=== PATIENT | female | born 1995 | race American Indian/Alaskan Native ===

== ENCOUNTER 2020-02-19 13:34 | Observation (INO) | payer BC, MEDICAID ==
--- NOTE | 2020-02-19 16:01 | Event Note ---
ED Screening Note Date of service: 02/19/20 Time: 15:56 ED Screening Note: 24-year-old female who presents the ED with shortness of breath and chest pain x2 days. Was sent here from [place] [facility] due to abnormal EKG Denies sick contact. Denies fever/cough chills or any other medical problems This initial assessment/diagnostic orders/clinical plan/treatment(s) is/are subject to change based on patients health status, clinical progression and re- assessment by fellow clinical providers in the ED. Further treatment and workup at subsequent clinical providers discretion. Patient/guardian urged not to elope from the ED as their condition may be serious if not clinically assessed and managed. Initial orders include: ekg, cxr ordered.
[2020-02-19 16:49] LABS: Basophils # (Auto) 0.1 K/mm3 (0.0-0.1); Basophils % (Auto) 0.6 % (0.0-1.8); Eosinophils % (Auto) 0.5 % (0.0-4.3); Hematocrit 30.1 % (30.3-42.9); Hemoglobin 9.2 gm/dl (10.1-14.3); Lymphocytes % (Auto) 20.7 % (13.4-35.0); Mean Corpuscular HGB Conc 31 % (30-34); Monocytes % (Auto) 10.4 % (0.0-7.3); Platelet Count 318 K/mm3 (140-440); Red Blood Count 4.88 M/mm3 (3.65-5.03)
[2020-02-19 16:56] LABS: Mean Corpuscular Volume 62 fl (79-97)
--- NOTE | 2020-02-19 16:58 | XRay Report ---
CHEST 2 VIEWS INDICATION / CLINICAL INFORMATION: C/0 CHEST PAIN WITH SOB X 3-4 DAYS. COMPARISON: None available. FINDINGS: SUPPORT DEVICES: Port-A-Cath is noted on the right. Tip of the catheter is oriented medially suggesti ng the tip may be in the azygos vein. HEART / MEDIASTINUM: No significant abnormality. LUNGS / PLEURA: No significant pulmonary or pleural abnormality. .No pneumothorax. ADDITIONAL FINDINGS: Scoliotic curvature is noted in the thoracolumbar spine IMPRESSION: 1. No acute pulmonary findings. Signer Name: Bay Styles MD Signed: 02/19/2020 4:54 PM Workstation Name: [id number]
[2020-02-19 17:16] LABS: BUN/Creatinine Ratio 15; Blood Urea Nitrogen 12 mg/dL (7-17); Calcium 10.1 mg/dL (8.4-10.2); Hemolysis Index 1
[2020-02-19] MEDS ORDERED: KETOROLAC 60 MG/2 ML INJ IM ONE (17:22)
--- NOTE | 2020-02-19 17:27 | Emergency Department Report ---
ED General Adult HPI - General Chief complaint: Chest Pain Stated complaint: CHEST PAIN/SOB/COUGH Time Seen by Provider: 02/19/20 17:15 Source: patient Mode of arrival: Ambulatory Limitations: No Limitations - History of Present Illness Initial comments: Patient is 24 years old female with history of autoimmune deficiency. Patient presented to the ER complaining of chest pain, sharp with no radiation associated with shortness of breath. Patient is also complaining of generalized body pain mainly to the back and lower extremities. Patient initially went to an urgent care and sent here for evaluation because of abnormal EKG. EKG reviewed and showed sinus tachycardia no other abnormalities detected. Patient denied any fever or chills. Patient stated that she has been having some cough but mainly when she woke up in the morning. Patient denied any nausea or vomiting. -: days(s) (2) - Related Data Previous Rx's Medication Instructions Recorded Last Taken Type Amoxicillin/K Clav Tab [Augmentin 1 tab PO BID #20 tablet 06/23/14 Unknown Rx 875MG] Ibuprofen [Motrin] 600 mg PO Q8H PRN #14 tablet 06/23/14 Unknown Rx traMADoL [Ultram] 50 mg PO Q6HR PRN #14 tablet 06/23/14 Unknown Rx Allergies Allergy/AdvReac Type Severity Reaction Status Date / Time midazolam HCl [From Versed] Allergy Unknown Verified 02/19/20 14:44 shellfish derived Allergy Unknown Verified 02/19/20 14:44 ED Review of Systems ROS: Stated complaint: CHEST PAIN/SOB/COUGH Other details as noted in HPI Comment: All other systems reviewed and negative Constitutional: denies: chills, fever Respiratory: cough, shortness of breath. denies: SOB with exertion, SOB at rest, wheezing Cardiovascular: chest pain, palpitations. denies: dyspnea on exertion, orthopnea Gastrointestinal: denies: abdominal pain, nausea, vomiting, diarrhea, constipation, hematemesis, melena, hematochezia Musculoskeletal: denies: back pain Neurological: denies: headache, weakness, numbness, paresthesias, confusion, abnormal gait ED Past Medical Hx - Past Medical History Hx Seizures: Yes Hx Asthma: Yes Additional medical history: BORN WITH IMMUNE DEFICIENCY, SPINA BIFIDA - Surgical History Additional Surgical History: SINUS SURGERY, HAS ON RIGHT SIDE OF CHEST, TNA, GLAND REMOVED ON R SIDE OF JAW, - Social History Smoking Status: Never Smoker Substance Use Type: None - Medications Home Medications: Home Medications Medication Instructions Recorded Confirmed Last Taken Type Amoxicillin/K Clav Tab [Augmentin 1 tab PO BID #20 tablet 06/23/14 Unknown Rx 875MG] Ibuprofen [Motrin] 600 mg PO Q8H PRN #14 tablet 06/23/14 Unknown Rx traMADoL [Ultram] 50 mg PO Q6HR PRN #14 tablet 06/23/14 Unknown Rx ED Physical Exam - General Limitations: No Limitations General appearance: alert, in no apparent distress, anxious - Head Head exam: Present: atraumatic, normocephalic, normal inspection - Eye Eye exam: Present: normal appearance - ENT ENT exam: Present: normal exam, normal orophraynx, mucous membranes moist - Neck Neck exam: Present: normal inspection, full ROM. Absent: tenderness, meningismus, lymphadenopathy, thyromegaly - Respiratory Respiratory exam: Present: normal lung sounds bilaterally - Cardiovascular Cardiovascular Exam: Present: regular rate, normal rhythm, normal heart sounds - GI/Abdominal GI/Abdominal exam: Present: soft, normal bowel sounds. Absent: distended, tenderness, guarding, rebound, rigid, organomegaly, mass, bruit, pulsatile mass, hernia - Extremities Exam Extremities exam: Present: normal inspection, full ROM, normal capillary refill. Absent: pedal edema, calf tenderness - Back Exam Back exam: Present: normal inspection, full ROM. Absent: CVA tenderness (R), CVA tenderness (L) - Neurological Exam Neurological exam: Present: alert, oriented X3, CN II-XII intact, normal gait, reflexes normal. Absent: motor sensory deficit - Psychiatric Psychiatric exam: Present: normal mood - Skin Skin exam: Present: warm, intact, normal color ED Course Vital Signs 02/19/20 14:45 Temperature 98.7 F Pulse Rate 108 H Respiratory 16 Rate Blood Pressure 115/72 O2 Sat by Pulse 99 Oximetry ED Medical Decision Making - Lab Data Result diagrams: 02/19/20 16:33 02/19/20 16:33 - EKG Data -: EKG Interpreted by Mt EKG shows normal: sinus rhythm Rate: tachycardia - EKG Data Interpretation: no acute changes - Radiology Data Radiology results: report reviewed - Medical Decision Making Patient is 24 years old female with history of autoimmune deficiency. Patient presented to the ER complaining of chest pain, sharp with no radiation associated with shortness of breath. Patient is also complaining of generalized body pain mainly to the back and lower extremities. Patient initially went to an urgent care and sent here for evaluation because of abnormal EKG. EKG reviewed and showed sinus tachycardia no other abnormalities detected. Patient denied any fever or chills. Patient stated that she has been having some cough but mainly when she woke up in the morning. Patient denied any nausea or vomiting. Patient remained stable in the ER. Labs reviewed and showed elevated d-dimer. CTA chest showed segmental and subsegmental right upper lobe pulmonary emboli. Patient started on heparin drip and I discussed the patient with , he agreed to admit the patient to medical service for further management. Critical Care Time: Yes Critical care time in (mins) excluding proc time.: 30 Critical care attestation.: If time is entered above; I have spent that time in minutes in the direct care of this critically ill patient, excluding procedure time. ED Disposition Clinical Impression: Pulmonary embolism, Chest pain Disposition: 09 OP ADMIT IP TO THIS HOSP Is pt being admited?: Yes Condition: Stable Instructions: Chest Pain (ED) Referrals: PRIMARY CARE, [Primary Care Provider] - 3-5 Days
[2020-02-19 18:48] LABS: Bilirubin,Urine NEG (Negative); Blood,Urine NEG (Negative); Color,Urine Yellow (Yellow); Mucus,Urine 3+ /HPF
[2020-02-19 19:39] LABS: INR 1.08 (0.87-1.13); Partial Thromboplastin Time 29.9 Sec. (24.2-36.6)
[2020-02-19] MEDS ORDERED: SODIUM CHLORIDE 0.9% 1000 ML 1,000 ML IV ONE (19:59)
--- NOTE | 2020-02-19 20:03 | Cat Scan Report ---
CTA CHEST WITH CONTRAST INDICATION / CLINICAL INFORMATION: CHEST PAIN WITH d-dimer >75530. TECHNIQUE: Axial CT images were obtained through the chest after injection of IV contrast. 3 plane MIP and/or 3D reconstructions were produced. All CT scans at this location are performed using CT dose reduction f or ALARA by means of automated exposure control. COMPARISON: None available. FINDINGS: PULMONARY ARTERIES: Filling defect seen in the segmental and subsegmental arteries involving the righ t upper lobe. THORACIC AORTA: Four-vessel arch noted. HEART: No significant abnormality. CORONARY ARTERIES: No significant calcification. MEDIASTINUM / SHEA: Soft tissue density superior mediastinal mass measuring 5.1 x 5.2 x 6.4 cm (HU 24 ) noted encasing the distal trachea, yue, and bronchial bifurcation without invasion. Additionally there is displacement of great vessels. Mediastinal lymphadenopathy is also noted, the largest congl omerate just left of the aortic arch measures 1.9 x 1.3 cm. PLEURA: No pleural effusion. No pneumothorax. LUNGS: Left lung base atelectasis noted ADDITIONAL FINDINGS: Right chest wall Port-A-Cath with its tip noted at the superior vena cava. UPPER ABDOMEN: No acute findings. SKELETAL STRUCTURES: No significant osseous abnormality. IMPRESSION: 1. Segmental and subsegmental right upper lobe pulmonary embolism. 2. Superior mediastinal soft tissue density mass described in detail above. ER physician reports a hi story of autoimmune disease. This may represent a thymoma. Further correlation with patient's medical history is recommended. 3. Left lower lobe atelectasis. CRITICAL RESULT: Time of Discovery (ROVING INSPECTOR/CDT): 1849 Time of Communication (ROVING INSPECTOR/CDT): 1856 Licensed Practitioner Receiving Report: Dr. Magdalene ABDUL ([facility]) Read-Back Performed: Yes. Signer Name: Yobani Valero MD Signed: 02/19/2020 7:58 PM Workstation Name: [id number]
[2020-02-19] MEDS ORDERED: HEPARIN 10,000 UNITS/10 ML VIAL IV ONE (20:04)
[2020-02-19] MEDS ORDERED: HEPARIN 1,000 UNIT/1 ML VIAL IV ONE (20:05)
[2020-02-19] MEDS ORDERED: HEPARIN/ 0.45% NACL DRIP 25,000 UNIT/500 ML BAG IV SCH (21:00)
[2020-02-19] MEDS ORDERED: MORPHINE 2 MG/1 ML INJ IV PRN (22:04)
[2020-02-19] MEDS ORDERED: ONDANSETRON 4 MG/2 ML INJ IV PRN (22:04)
[2020-02-19] MEDS ORDERED: ACETAMINOPHEN 325 MG TAB PO PRN (22:04)
--- NOTE | 2020-02-19 22:12 | History and Physical Report ---
History of Present Illness Date of examination: 02/19/20 Date of admission: 02/19/20 21:35 Chief complaint: Chest Pain Shortness of Breath History of present illness: 24-year-old -[place] female with known history of autoimmune deficiency, history of seizure disorder and asthma presenting to the emergency room today complaining of chest pain with associated shortness of breath. Chest pain is said to be right-sided and radiating towards the back and lower extremities. He was seen at an urgent care facility and subsequently sent to the emergency room for further evaluation. Upon arrival in the emergency room she was found to be tachycardic. She denies any fever or chills, no nausea vomiting, no headache or dizziness. She has had some mild cough which is nonproductive. Work-up in the emergency room shows elevated d-dimer. CT angiogram shows right- sided pulmonary embolism She was subsequently commenced on heparin drip. Past History Past Medical History: seizures, other (Asthma,Auto immune disorder, H/O Spina Bifida) Past Surgical History: Other (Tonsillectomy and adenoidectomy, Rt. sided Chest Port placement,Sinus surgery) Social history: alcohol abuse (Occasional alcohol) Family history: hypertension (Mother has h/o hypertension), other (H/O Blood clot in father) Medications and Allergies Allergies Allergy/AdvReac Type Severity Reaction Status Date / Time midazolam HCl [From Versed] Allergy Unknown Verified 02/19/20 14:44 shellfish derived Allergy Unknown Verified 02/19/20 14:44 Home Medications Medication Instructions Recorded Confirmed Last Taken Type Amoxicillin/K Clav Tab [Augmentin 1 tab PO BID #20 tablet 06/23/14 Unknown Rx 875MG] Ibuprofen [Motrin] 600 mg PO Q8H PRN #14 tablet 06/23/14 Unknown Rx traMADoL [Ultram] 50 mg PO Q6HR PRN #14 tablet 06/23/14 Unknown Rx Active Meds: Active Medications Acetaminophen (Tylenol) 650 mg PO Q4H PRN PRN Reason: Pain MILD(1-3)/Fever >100.5/SANTOYO Heparin Sodium/Sodium Chloride (Heparin/ 0.45% Nacl-25,000 Unit/500 Ml) 25,000 unit in 500 mls @ 21 mls/hr IV TITR KELLY; Protocol Last Admin: 02/19/20 21:23 Dose: 1,050 units/hr, 21 mls/hr Documented by: Morphine Sulfate (Morphine) 2 mg IV Q4H PRN PRN Reason: Pain, Moderate (4-6) Ondansetron HCl (Zofran) 4 mg IV Q8H PRN PRN Reason: Nausea And Vomiting Sodium Chloride (Sodium Chloride Flush Syringe 10 Ml) 10 ml IV BID KELLY Sodium Chloride (Sodium Chloride Flush Syringe 10 Ml) 10 ml IV PRN PRN PRN Reason: LINE FLUSH Review of Systems Constitutional: no fever, no chills, no fatigue Ears, nose, mouth and throat: no nasal congestion, no sore throat Cardiovascular: chest pain, palpitations Respiratory: cough (mild), shortness of breath Gastrointestinal: no abdominal pain, no nausea, no vomiting, no diarrhea Genitourinary Female: no pelvic pain, no flank pain, no dysuria, no hematuria Musculoskeletal: no neck pain, no low back pain Integumentary: no rash, no pruritis Neurological: no headaches, no confusion Psychiatric: no anxiety, no depression Exam - Constitutional Vitals: Temp Pulse Resp BP Pulse Ox 98.7 F 108 H 16 115/72 99 02/19/20 14:45 02/19/20 14:45 02/19/20 14:45 02/19/20 14:45 02/19/20 14:45 General appearance: Present: no acute distress, well-nourished - EENT Eyes: Present: PERRL, EOM intact. Absent: scleral icterus ENT: hearing intact, clear oral mucosa, dentition normal - Neck Neck: Present: supple, normal ROM - Respiratory Respiratory effort: normal Respiratory: bilateral: CTA - Cardiovascular Rhythm: regular Heart Sounds: Present: S1 & S2. Absent: gallop, systolic murmur, diastolic murmur, rub - Extremities Extremities: no ischemia, pulses intact, pulses symmetrical, No edema, Full ROM Peripheral Pulses: within normal limits - Abdominal General gastrointestinal: Present: soft, non-tender, non-distended, normal bowel sounds. Absent: mass - Integumentary Integumentary: Present: clear, warm, dry. Absent: rash - Musculoskeletal Musculoskeletal: strength equal bilaterally - Psychiatric Psychiatric: appropriate mood/affect, intact judgment & insight, memory intact, cooperative - Neurologic Neurologic: CNII-XII intact, no focal deficits, moves all extremities Results - Labs CBC & Chem 7: 02/19/20 16:33 02/19/20 16:33 Labs: Abnormal lab results 02/19/20 02/19/20 02/19/20 Range/Units 16:33 16:33 17:49 Hgb 9.2 L (10.1-14.3) gm/dl Hct 30.1 L (30.3-42.9) % MCV 62 L (79-97) fl MCH 19 L (28-32) pg RDW 20.0 H (13.2-15.2) % [place] % (Auto) 10.4 H (0.0-7.3) % [place] # 1.0 H (0.0-0.8) K/mm3 D-Dimer 556.81 H (0-234) ng/mlDDU Carbon Dioxide 21 L (22-30) mmol/L Assessment and Plan - Patient Problems (1) Pulmonary embolism Current Visit: Yes Status: Acute Plan to address problem: Patient placed on heparin drip. Will monitor PT/INR. (2) Chest pain Current Visit: Yes Status: Acute Plan to address problem: Possibly secondary to the pulmonary embolism. Will place on analgesic medication. (3) Full code status Current Visit: Yes Status: Acute
[2020-02-20 06:10] LABS: INR 1.03 (0.87-1.13)
[2020-02-20 06:19] LABS: Blood Urea Nitrogen 12 mg/dL (7-17); Calcium 8.9 mg/dL (8.4-10.2); Hemolysis Index 4
[2020-02-20 06:21] LABS: BUN/Creatinine Ratio 17
--- NOTE | 2020-02-20 10:43 | Consultation ---
History of Present Illness - History of Present Illness PRELIM CONSULT NOTE--NOT SEEN YET 24yo AA woman with mention of autoimmune disease (details unavailable) and spina bifida, seizures, asthma now eval for back pain, CO, SOB, tachypnea found to have evidence of PE started IV heparin chart reviewed IMPRESSION presumed clotting tendency, now with PE mention of autoimmune disease-r/o lupus anticoagulant microcytic anemia; r/o iron defic clotting tendency in AA could be due to sickle trait or sickle cell variant ddimer is not hihgh enough to matter--this shows small clot burden RECOMMEND change to lovenox because safer and more effective anticipate home xarelto after she improves-start working on this steroid pulse for presumed pulm infarction (pain) opiate meds may be needed for pain labs to include RUPALI, DNA Ab, cardiolipin Ab, hgb electroporesis, Fe, TIBC, ferr contact ms [phone] for heme questions Abnormal Lab Results 02/19/20 02/19/20 02/19/20 16:33 16:33 17:49 WBC 9.6 RBC 4.88 Hgb 9.2 L Hct 30.1 L MCV 62 L MCH 19 L MCHC 31 RDW 20.0 H Plt Count 318 Lymph % (Auto) 20.7 [place] % (Auto) 10.4 H Eos % (Auto) 0.5 Baso % (Auto) 0.6 Lymph # 2.0 [place] # 1.0 H Eos # 0.0 Baso # 0.1 Seg Neutrophils % 67.8 Seg Neutrophils # 6.5 PT INR APTT D-Dimer 556.81 H Sodium 138 Potassium 4.7 Chloride 99.2 Carbon Dioxide 21 L Anion Gap 23 BUN 12 Creatinine 0.8 Estimated GFR > 60 BUN/Creatinine Ratio 15 Glucose 79 Calcium 10.1 Urine Color Urine Turbidity Urine pH Ur Specific [place] Urine Protein Urine Glucose (UA) Urine Ketones Urine Blood Urine Nitrite Urine Bilirubin Urine Urobilinogen Ur Leukocyte Esterase Urine WBC (Auto) Urine RBC (Auto) U Epithel Cells (Auto) Urine Mucus 02/19/20 02/19/20 02/20/20 18:03 18:52 04:15 WBC RBC Hgb Hct MCV MCH MCHC RDW Plt Count Lymph % (Auto) [place] % (Auto) Eos % (Auto) Baso % (Auto) Lymph # [place] # Eos # Baso # Seg Neutrophils % Seg Neutrophils # PT 14.1 13.7 INR 1.08 1.03 APTT 29.9 D-Dimer Sodium Potassium Chloride Carbon Dioxide Anion Gap BUN Creatinine Estimated GFR BUN/Creatinine Ratio Glucose Calcium Urine Color Yellow Urine Turbidity Clear Urine pH 5.0 Ur Specific [place] 1.029 Urine Protein 30 mg/dl Urine Glucose (UA) Neg Urine Ketones 80 Urine Blood Neg Urine Nitrite Neg Urine Bilirubin Neg Urine Urobilinogen 4.0 Ur Leukocyte Esterase Sm Urine WBC (Auto) 5.0 Urine RBC (Auto) 3.0 U Epithel Cells (Auto) 6.0 Urine Mucus 3+ 02/20/20 04:15 WBC RBC Hgb Hct MCV MCH MCHC RDW Plt Count Lymph % (Auto) [place] % (Auto) Eos % (Auto) Baso % (Auto) Lymph # [place] # Eos # Baso # Seg Neutrophils % Seg Neutrophils # PT INR APTT D-Dimer Sodium 138 Potassium 4.4 Chloride 103.7 Carbon Dioxide 22 Anion Gap 17 BUN 12 Creatinine 0.7 Estimated GFR > 60 BUN/Creatinine Ratio 17 Glucose 87 Calcium 8.9 Urine Color Urine Turbidity Urine pH Ur Specific [place] Urine Protein Urine Glucose (UA) Urine Ketones Urine Blood Urine Nitrite Urine Bilirubin Urine Urobilinogen Ur Leukocyte Esterase Urine WBC (Auto) Urine RBC (Auto) U Epithel Cells (Auto) Urine Mucus Active Medications Acetaminophen (Tylenol) 650 mg PO Q4H PRN PRN Reason: Pain MILD(1-3)/Fever >100.5/SANTOYO Heparin Sodium/Sodium Chloride (Heparin/ 0.45% Nacl-25,000 Unit/500 Ml) 25,000 unit in 500 mls @ 21 mls/hr IV TITR [facility]; Protocol Last Admin: 02/19/20 21:23 Dose: 1,050 units/hr, 21 mls/hr Documented by: Morphine Sulfate (Morphine) 2 mg IV Q4H PRN PRN Reason: Pain, Moderate (4-6) Ondansetron HCl (Zofran) 4 mg IV Q8H PRN PRN Reason: Nausea And Vomiting Sodium Chloride (Sodium Chloride Flush Syringe 10 Ml) 10 ml IV BID KELLY Sodium Chloride (Sodium Chloride Flush Syringe 10 Ml) 10 ml IV PRN PRN PRN Reason: LINE FLUSH Vital Signs - 24 hr 02/19/20 02/19/20 02/19/20 14:45 22:24 22:31 Temperature 98.7 F 98.8 F Pulse Rate 108 H 91 H 88 Respiratory 16 16 17 Rate Blood Pressure 115/72 Blood Pressure 106/58 [Left] O2 Sat by Pulse 99 100 Oximetry 02/19/20 02/20/20 02/20/20 23:49 03:20 06:24 Temperature 99.5 F 98.5 F Pulse Rate 98 H 92 H 91 H Respiratory 16 18 Rate Blood Pressure 95/52 99/55 Blood Pressure [Left] O2 Sat by Pulse 99 100 Oximetry 02/20/20 02/20/20 07:24 07:25 Temperature Pulse Rate 98 H 100 H Respiratory Rate Blood Pressure 107/59 Blood Pressure [Left] O2 Sat by Pulse 97 97 Oximetry Past History Past Medical History: seizures, other (Asthma,Auto immune disorder, H/O Spina Bifida) Past Surgical History: Other (Tonsillectomy and adenoidectomy, Rt. sided Chest Port placement,Sinus surgery) Social history: alcohol abuse (Occasional alcohol) Family history: hypertension (Mother has h/o hypertension), other (H/O Blood clot in father) Medications and Allergies Allergies Allergy/AdvReac Type Severity Reaction Status Date / Time midazolam HCl [From Versed] Allergy Unknown Verified 02/19/20 14:44 shellfish derived Allergy Unknown Verified 02/19/20 14:44 Home Medications Medication Instructions Recorded Confirmed Last Taken Type cefUROXime [Ceftin] 500 mg PO BID 02/20/20 02/20/20 Unknown History Active Meds: Active Medications Acetaminophen (Tylenol) 650 mg PO Q4H PRN PRN Reason: Pain MILD(1-3)/Fever >100.5/SANTOYO Heparin Sodium/Sodium Chloride (Heparin/ 0.45% Nacl-25,000 Unit/500 Ml) 25,000 unit in 500 mls @ 21 mls/hr IV TITR KELLY; Protocol Last Admin: 02/19/20 21:23 Dose: 1,050 units/hr, 21 mls/hr Documented by: Morphine Sulfate (Morphine) 2 mg IV Q4H PRN PRN Reason: Pain, Moderate (4-6) Ondansetron HCl (Zofran) 4 mg IV Q8H PRN PRN Reason: Nausea And Vomiting Sodium Chloride (Sodium Chloride Flush Syringe 10 Ml) 10 ml IV BID KELLY Sodium Chloride (Sodium Chloride Flush Syringe 10 Ml) 10 ml IV PRN PRN PRN Reason: LINE FLUSH Exam - Constitutional Vitals: Temp Pulse Resp BP Pulse Ox 98.5 F 100 H 18 107/59 97 02/20/20 03:20 02/20/20 07:25 02/20/20 03:20 02/20/20 07:24 02/20/20 07:25 Results - Labs CBC & Chem 7: 02/19/20 16:33 02/20/20 04:15 Labs: Abnormal lab results 02/19/20 02/19/20 02/19/20 Range/Units 16:33 16:33 17:49 Hgb 9.2 L (10.1-14.3) gm/dl Hct 30.1 L (30.3-42.9) % MCV 62 L (79-97) fl MCH 19 L (28-32) pg RDW 20.0 H (13.2-15.2) % [place] % (Auto) 10.4 H (0.0-7.3) % [place] # 1.0 H (0.0-0.8) K/mm3 D-Dimer 556.81 H (0-234) ng/mlDDU Carbon Dioxide 21 L (22-30) mmol/L
[2020-02-20] MEDS: ENOXAPARIN 80 MG/0.8 ML INJ SUB-Q SCH ×2 (11:49→22:28)
[2020-02-20] MEDS: methylPREDNISolone Sod Succinate 125 MG/2 ML INJ IV SCH ×2 (11:49→22:27)
--- NOTE | 2020-02-20 15:28 | Vascular Lab Report ---
DUPLEX DOPPLER LOWER EXTREMITY VEINS, BILATERAL INDICATION / CLINICAL INFORMATION: Rt PE, evaluate for DVT. TECHNIQUE: Duplex doppler imaging was performed through the veins of both lower extremities using venous medardo mary and other maneuvers. COMPARISON: None available. FINDINGS: RIGHT COMMON FEMORAL VEIN: Negative. RIGHT FEMORAL VEIN: Negative. RIGHT POPLITEAL VEIN: Negative. RIGHT CALF VEINS: Negative. LEFT COMMON FEMORAL VEIN: Negative. LEFT FEMORAL VEIN: Negative. LEFT POPLITEAL VEIN: Negative. LEFT CALF VEINS: Negative. ADDITIONAL FINDINGS: None. IMPRESSION: No sonographic evidence for DVT in either lower extremity. Signer Name: Polo Sotelo MD Signed: 02/20/2020 3:23 PM Workstation Name: [id number]
--- NOTE | 2020-02-20 19:27 | Progress Note ---
Assessment and Plan Assessment and plan: --Pulmonary embolism Current Visit: Yes Status: Acute Plan to address problem: Patient placed on heparin drip. Will monitor PT/INR. Will change to Lovenox subcu every 12 Oxygen titrate O2 sats to more than 90% Pain medications supportive care Hyper coag panel requested, Hematology consult DC on oral anticoagulants, Xarelto versus Eliquis --Lower extremity venous Doppler; negative for DVT --Severe atypical chest pain/due to PE/?pulmonary infarction Current Visit: Yes Status: Acute Plan to address problem: Consider opioid pain medications, IV Dilaudid And oral Percocet as needed --History of autoimmune disease: [Details unknown] Current Visit: Yes Status: Acute Plan to address problem: try to get information from her MD Or patient may follow-up upon discharge for further evaluation and management --Anemia: Probably iron deficiency Current Visit: Yes Status: Acute Plan to address problem: Iron panel, ferrous sulfate as needed --Full code status Current Visit: Yes Status: Acute We will closely monitor patient and adjust management as needed. Plan of care reviewed with the patient and her nurse Hematology evaluation recommendations noted and appreciated History Interval history: I have seen and examined the patient today morning at bedside Patient's chart and medications reviewed Admitted with acute PE, on heparin drip Patient denies shortness of breath or chest pain Vital signs noted Hospitalist Physical - Constitutional Vitals: Temp Pulse Resp BP Pulse Ox 99.6 F 100 H 18 92/50 99 02/20/20 12:00 02/20/20 13:50 02/20/20 12:00 02/20/20 12:00 02/20/20 12:06 General appearance: Present: no acute distress, well-nourished - EENT Eyes: Present: PERRL, EOM intact - Neck Neck: Present: supple, normal ROM - Respiratory Respiratory effort: normal Respiratory: bilateral: diminished, rhonchi, negative: rales, wheezing - Cardiovascular Rhythm: regular Heart Sounds: Present: S1 & S2 - Extremities Extremities: no ischemia, No edema - Abdominal General gastrointestinal: soft, non-tender, non-distended, normal bowel sounds - Integumentary Integumentary: Present: clear, warm - Psychiatric Psychiatric: appropriate mood/affect, cooperative - Neurologic Neurologic: moves all extremities Results - Labs CBC & Chem 7: 02/19/20 16:33 02/20/20 04:15 Labs: Laboratory Last Values WBC 9.6 K/mm3 (4.5-11.0) 02/19/20 16:33 RBC 4.88 M/mm3 (3.65-5.03) 02/19/20 16:33 Hgb 9.2 gm/dl (10.1-14.3) L 02/19/20 16:33 Hct 30.1 % (30.3-42.9) L 02/19/20 16:33 MCV 62 fl (79-97) L 02/19/20 16:33 MCH 19 pg (28-32) L 02/19/20 16:33 MCHC 31 % (30-34) 02/19/20 16:33 RDW 20.0 % (13.2-15.2) H 02/19/20 16:33 Plt Count 318 K/mm3 (140-440) 02/19/20 16:33 Lymph % (Auto) 20.7 % (13.4-35.0) 02/19/20 16:33 Schley % (Auto) 10.4 % (0.0-7.3) H 02/19/20 16:33 Eos % (Auto) 0.5 % (0.0-4.3) 02/19/20 16:33 Baso % (Auto) 0.6 % (0.0-1.8) 02/19/20 16:33 Lymph # 2.0 K/mm3 (1.2-5.4) 02/19/20 16:33 Schley # 1.0 K/mm3 (0.0-0.8) H 02/19/20 16:33 Eos # 0.0 K/mm3 (0.0-0.4) 02/19/20 16:33 Baso # 0.1 K/mm3 (0.0-0.1) 02/19/20 16:33 Seg Neutrophils % 67.8 % (40.0-70.0) 02/19/20 16:33 Seg Neutrophils # 6.5 K/mm3 (1.8-7.7) 02/19/20 16:33 PT 13.7 Sec. (12.2-14.9) 02/20/20 04:15 INR 1.03 (0.87-1.13) 02/20/20 04:15 APTT 29.9 Sec. (24.2-36.6) 02/19/20 18:52 D-Dimer 556.81 ng/mlDDU (0-234) H 02/19/20 17:49 Heparin Anti-Xa Level 0.78 U.I./ml (0.3-0.7) H 02/20/20 13:46 Sodium 138 mmol/L (137-145) 02/20/20 04:15 Potassium 4.4 mmol/L (3.6-5.0) 02/20/20 04:15 Chloride 103.7 mmol/L (98-107) 02/20/20 04:15 Carbon Dioxide 22 mmol/L (22-30) 02/20/20 04:15 Anion Gap 17 mmol/L 02/20/20 04:15 BUN 12 mg/dL (7-17) 02/20/20 04:15 Creatinine 0.7 mg/dL (0.6-1.2) 02/20/20 04:15 Estimated GFR > 60 ml/min 02/20/20 04:15 BUN/Creatinine Ratio 17 % 02/20/20 04:15 Glucose 87 mg/dL (65-100) 02/20/20 04:15 Calcium 8.9 mg/dL (8.4-10.2) 02/20/20 04:15 Urine Color Yellow (Yellow) 02/19/20 18:03 Urine Turbidity Clear (Clear) 02/19/20 18:03 Urine pH 5.0 (5.0-7.0) 02/19/20 18:03 Ur Specific [place] 1.029 (1.003-1.030) 02/19/20 18:03 Urine Protein 30 mg/dl mg/dL (Negative) 02/19/20 18:03 Urine Glucose (UA) Neg mg/dL (Negative) 02/19/20 18:03 Urine Ketones 80 mg/dL (Negative) 02/19/20 18:03 Urine Blood Neg (Negative) 02/19/20 18:03 Urine Nitrite Neg (Negative) 02/19/20 18:03 Urine Bilirubin Neg (Negative) 02/19/20 18:03 Urine Urobilinogen 4.0 mg/dL (<2.0) 02/19/20 18:03 Ur Leukocyte Esterase Sm (Negative) 02/19/20 18:03 Urine WBC (Auto) 5.0 /HPF (0.0-6.0) 02/19/20 18:03 Urine RBC (Auto) 3.0 /HPF (0.0-6.0) 02/19/20 18:03 U Epithel Cells (Auto) 6.0 /HPF (0-13.0) 02/19/20 18:03 Urine Mucus 3+ /HPF 02/19/20 18:03 Farrar/IV: Voiding Method Toilet IV Catheter Type [Right INT / Saline Lock Antecubital] Active Medications - Current Medications Current Medications: Generic Name Dose Route Start Last Admin Trade Name Freq PRN Reason Stop Dose Admin Acetaminophen 650 mg 02/19/20 22:04 Tylenol PO Q4H PRN Pain MILD(1-3)/Fever >100.5/SANTOYO Enoxaparin Sodium 80 mg 02/20/20 11:00 02/20/20 11:49 Enoxaparin SUB-Q 80 mg Q12HR KELLY Administration Methylprednisolone Sodium Succinate 80 mg 02/20/20 11:00 02/20/20 11:49 Solu-Medrol IV 02/20/20 23:01 80 mg Q12H KELLY Administration Morphine Sulfate 2 mg 02/19/20 22:04 Morphine IV Q4H PRN Pain, Moderate (4-6) Ondansetron HCl 4 mg 02/19/20 22:04 Zofran IV Q8H PRN Nausea And Vomiting Sodium Chloride 10 ml 02/20/20 10:00 Sodium Chloride Flush Syringe 10 Ml IV BID KELLY Sodium Chloride 10 ml 02/19/20 22:04 Sodium Chloride Flush Syringe 10 Ml IV PRN PRN LINE FLUSH
[2020-02-20] MEDS ORDERED: HYDROmorphone 1 MG/1 ML INJ IM PRN (19:32)
[2020-02-21 04:52] LABS: Basophils % (Auto) 0.1 % (0.0-1.8); Hematocrit 27.1 % (30.3-42.9); Hemoglobin 8.2 gm/dl (10.1-14.3); Lymphocytes # (Auto) 1.1 K/mm3 (1.2-5.4); Lymphocytes % (Auto) 13.1 % (13.4-35.0); Mean Corpuscular HGB Conc 30 % (30-34); Monocytes # (Auto) 0.4 K/mm3 (0.0-0.8); Monocytes % (Auto) 4.2 % (0.0-7.3); Platelet Count 328 K/mm3 (140-440); Red Blood Count 4.44 M/mm3 (3.65-5.03); Red Cell Distribution Width 19.6 % (13.2-15.2)
[2020-02-21 04:55] LABS: Mean Corpuscular Volume 61 fl (79-97)
[2020-02-21 05:06] LABS: Iron 16 ug/dL (37-170); Total Iron Binding Capacity 350 mcg/dL (250-450)
[2020-02-21] MEDS: ENOXAPARIN 80 MG/0.8 ML INJ SUB-Q SCH (09:29)
--- NOTE | 2020-02-21 12:05 | Progress Note ---
Subjective Interval history: 24yo AA woman with mention of autoimmune disease (details unavailable) and spina bifida, seizures, asthma now eval for back pain, CO, SOB, tachypnea found to have evidence of PE Discussed her h/o autoimmune disease:she says she has had Agammaglobulinemia, followed by Dre Persaud (she says her mother is his chief merchandising officer). She had been receiving IVIG monthly as a child, but stopped 2-3 years ago. She has had some subq immune globulin injections. she says her port was intended for IVIG, but never functioned. 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 Persaud's office) and called Fish Jefferson, her LENS SILVERER at [facility] in [facility]-left [facility] contact [place] [phone] for heme questions Objective - Constitutional Vitals: Vital Signs - 12hr 02/21/20 02/21/20 02/21/20 00:04 05:59 07:21 Temperature 98.2 F 98.8 F 98.3 F Pulse Rate 84 84 87 Respiratory 20 20 18 Rate Blood Pressure 110/69 96/63 116/63 O2 Sat by Pulse 99 99 98 Oximetry 02/21/20 02/21/20 08:17 11:12 Temperature 98.6 F Pulse Rate 82 Respiratory 18 16 Rate Blood Pressure 83/46 O2 Sat by Pulse 96 97 Oximetry - Labs CBC & Chem 7: 02/21/20 04:11 02/20/20 04:15 Labs: Abnormal lab results 02/20/20 02/21/20 02/21/20 Range/Units 13:46 04:11 04:11 Hgb 8.2 L (10.1-14.3) gm/dl Hct 27.1 L (30.3-42.9) % MCV 61 L (79-97) fl MCH 19 L (28-32) pg RDW 19.6 H (13.2-15.2) % Lymph % (Auto) 13.1 L (13.4-35.0) % Lymph # 1.1 L (1.2-5.4) K/mm3 Seg Neutrophils % 82.6 H (40.0-70.0) % Heparin Anti-Xa Level 0.78 H (0.3-0.7) U.I./ml Iron 16 L (37-170) ug/dL Medications & Allergies - Medications Allergies/Adverse Reactions: Allergies midazolam HCl [From Versed] Allergy (Verified 02/19/20 14:44) Unknown shellfish derived Allergy (Verified 02/19/20 14:44) Unknown Home Medications: Home Medications Medication Instructions Recorded Confirmed Last Taken Type cefUROXime [Ceftin] 500 mg PO BID 02/20/20 02/20/20 Unknown History Active Medications: Generic Name Dose Route Start Last Admin Trade Name Freq PRN Reason Stop Dose Admin Acetaminophen 650 mg 02/19/20 22:04 Tylenol PO Q4H PRN Pain MILD(1-3)/Fever >100.5/SANTOYO Enoxaparin Sodium 80 mg 02/20/20 11:00 02/21/20 09:29 Enoxaparin SUB-Q 80 mg Q12HR KELLY Administration Hydromorphone HCl 1 mg 02/20/20 19:32 Dilaudid IM Q4H PRN Pain , Severe (7-10) Ferric Sodium Gluconate 110 mls @ 100 mls/hr 02/21/20 13:00 Complex 125 mg/ Sodium IV 02/22/20 11:05 Chloride DAILY KELLY Ondansetron HCl 4 mg 02/19/20 22:04 Zofran IV Q8H PRN Nausea And Vomiting Sodium Chloride 10 ml 02/20/20 10:00 02/21/20 09:30 Sodium Chloride Flush Syringe 10 Ml IV 10 ml BID KELLY Administration Sodium Chloride 10 ml 02/19/20 22:04 Sodium Chloride Flush Syringe 10 Ml IV PRN PRN LINE FLUSH
[2020-02-21] MEDS ORDERED: SODIUM FERRIC GLUCON/SUCRO 125 MG in SODIUM CHLORIDE 0.9% 100 ML IV SCH (13:00)
--- NOTE | 2020-02-21 16:47 | Discharge Summary ---
Providers - Providers Date of Admission: 02/19/20 21:35 Date of discharge: 02/21/20 Attending physician: DILSHAD MARIE 02/20/20 08:22 Consult to Physician [CONS] Routine Comment: Consulting Provider: MICHELLE MEJIA Physician Instructions: Reason For Exam: Segmental subsegmental right-sided PE 02/20/20 10:50 Consult to Case Management [CONS] Routine Services Needed at Discharge: Other Notified:: cm notified Additional Physician Instructions: home meds: xarelto starter pack Primary care physician: [employer] Hospitalization Condition: Stable Time spent for discharge: 32 min Core Measure Documentation - Palliative Care Palliative Care/ Comfort Measures: Not Applicable - Core Measures Any of the following diagnoses?: DVT/PE - VTE Discharge Requirements Deep Vein Thrombosis/Pulmonary Embolism Present on Admission: Yes Has pt received <5 days of overlap therapy or INR<2.0: Yes (on xeralto) Anticoagulant overlap therapy prescribed at discharge: No Contraindication No Overlap Therapy order at DC: Not Indicated (on xeralto) Exam - Constitutional Vitals: Temp Pulse Resp BP Pulse Ox 98.6 F 85 18 109/73 97 02/21/20 11:12 02/21/20 14:00 02/21/20 12:06 02/21/20 12:06 02/21/20 11:12 Plan Activity: no restrictions Diet: regular Additional Instructions: Follow-up with pediatric immunologist Dr.Fein Johnson[[phone]] in 1 week. Advised to follow with primary care physician in 1 week. Advised to follow lock tender per schedule. Hematology advised to remove port if it is not needed by primary care physician. CTA chest; show superior mediastinum mass/possible thymoma. Patient will check with primary care physician, may need further evaluation by CT surgeon. Advised 4 days work excuse 02/22/2020-02/25/2020, may return to work on 02/26/2020 if you feel better. Or check with your primary care physician for more days of work excuse if needed Follow up with: ANAID KELLEY MD [Primary Care Provider] - 3-5 Days MICHELLE MEJIA MD [Staff Physician] - 7 Days Prescriptions: Ferrous Sulfate [Feosol 325 MG tab] 325 mg PO BID #60 tablet Albuterol Mdi (or & Nicu Only) [ProAir HFA Inhaler] 2 puff IH QID PRN #8.5 gram PRN Reason: Shortness Of Breath Rivaroxaban [Xarelto] 15 mg PO BID #42 tablet Rivaroxaban [Xarelto] 20 mg PO QDAY #30 tab
[2020-02-21 16:50] VITALS: BP 94/61
--- NOTE | 2020-02-21 17:28 | Event Note ---
Date: 02/21/20 I spoke with patient's mother on speaker phone in her room, discussed patient's condition treatment and discharge plan And post discharge instructions, and follow-up visits, advised 4 days of work excuse, may return to work if patient feels better Answered all their questions
[2020-02-21] MEDS ORDERED: ENOXAPARIN 40 MG/0.4 ML INJ SUB-Q ONE (18:00)
== END 2020-02-21 19:33 | disposition home or self-care (01) ==
LOC: ED 13:34 → 4A 21:35
PROVIDERS: ADMIT Internal Medicine Geriatric Medicine; ATTEND Internal Medicine
DX: I26.99 Other pulmonary embolism without acute cor pulmonale (principal); R07.89 Other chest pain; R56.9 Unspecified convulsions; J45.909 Unspecified asthma, uncomplicated; D89.89 Other specified disorders involving the immune mechanism, not elsewhere classified; D64.9 Anemia, unspecified; Z90.49 Acquired absence of other specified parts of digestive tract; Z98.890 Other specified postprocedural states
CPT/HCPCS: 36415; 71046; 71275; 80048; 81001; 82728; 83550; 85014; 85018; 85025; 85379; 85520; 85610; 85730; 86147; 93005; 93970; 96365; 96366; 96367; 96372; 96375; 96376; 99291; G0378; J1644; J1650; J1885; J2916; J2930; J7030; Q9967

== ENCOUNTER 2020-09-20 16:31 | Emergency (ER) | payer BC ==
--- NOTE | 2020-09-20 19:39 | Emergency Department Report ---
Minor Respiratory - HPI Chief Complaint: Upper Respiratory Infection Stated Complaint: COVID SYMPTOMS/ FEVER/COUGH/MIRGRAINE Time Seen by Provider: 09/20/20 19:35 Duration: 2 Days Minor Respiratory: Yes Able to Tolerate Fluids, Yes Cough, Yes Fever, No Rhinorrhea, No Sore Throat, No Ear Pain, No Sick Contacts, No Hemoptysis, No Chest Pain, No Shortness of Breath Other History: 25-year-old -Polish female presents to the emergency room complaining of fever headache and cough and chills for 2 days. Patient reports has been taken [id number] TheraFlu. She last took a dose was e arlier this morning. Patient also reports of a headache. Patient denies any nausea no vomiting no loss of taste or smell no diarrhea or abdominal pain. She states that she has had Covid back in February and her symptoms are very similar. Patient does have a primary care provider but failed to follow-up with him. ED Review of Systems ROS: Stated complaint: COVID SYMPTOMS/ FEVER/COUGH/MIRGRAINE Other details as noted in HPI Comment: All other systems reviewed and negative ED Past Medical Hx - Past Medical History Previous Medical History?: Yes Hx Seizures: Yes Hx Asthma: Yes Additional medical history: BORN WITH IMMUNE DEFICIENCY, SPINA BIFIDA - Surgical History Past Surgical History?: Yes Additional Surgical History: SINUS SURGERY, HAS ON RIGHT SIDE OF CHEST, TNA, GLAND REMOVED ON R SIDE OF JAW, - Social History Smoking Status: Never Smoker Substance Use Type: None - Medications Home Medications: Home Medications Medication Instructions Recorded Confirmed Last Taken Type cefUROXime [Ceftin] 500 mg PO BID 02/20/20 02/20/20 Unknown History Albuterol Mdi (or & Nicu Only) 2 puff IH QID PRN #8.5 gram 02/21/20 Unknown Rx [ProAir HFA Inhaler] Ferrous Sulfate [Feosol 325 MG tab] 325 mg PO BID #60 tablet 02/21/20 Unknown Rx Rivaroxaban [Xarelto] 15 mg PO BID #42 tablet 02/21/20 Unknown Rx Rivaroxaban [Xarelto] 20 mg PO QDAY #30 tab 02/21/20 Unknown Rx Azithromycin [Zithromax Z-CHANDRA] 250 mg PO DAILY #6 tab 09/20/20 Unknown Rx Minor Respiratory Exam - Exam General: Vital signs noted. No distress. Alert and acting appropriately. HEENT: Yes Moist Mucous Membranes, No Pharyngeal Erythema, No Pharyngeal Exudates, No Rhinorrhea, No Conjuctival Injection, No Frontal Tenderness, No M axillary Tenderness Neck: Yes Supple, No Adenopathy Lungs: Yes Good Air Exchange, No Wheezes, No Ronchi, No Stridor, No Cough, No Labored Respirations, No Retractions, No Use of Accessory Muscles, No Other Abnormal Lung Sounds Heart: Yes Regular, No Murmur Abdomen: Yes Normal Bowel Sounds, No Tenderness, No Peritoneal Signs Skin: No Rash, No Edema Neurologic: Alert and oriented, no deficits. Musculoskeletal: Unremarkable. ED Course Vital Signs 09/20/20 18:25 Temperature 100.3 F H Pulse Rate 110 H Respiratory 16 Rate Blood Pressure 122/80 O2 Sat by Pulse 99 Oximetry ED Medical Decision Making - Lab Data Result diagrams: 09/20/20 19:49 09/20/20 19:49 - Radiology Data Radiology results: report reviewed [facility] [address] [place] [address] XRay Report Signed Patient: JONA RODRIGUEZ MR#: [id number] : 1995 Acct:[id number] Age/Sex: 25 / F ADM Date: 09/20/20 Loc: ED Attending Dr: Ordering Physician: KENIA HERNANDEZ Date of Service: 09/20/20 Procedure(s): XR chest routine 2V Accession Number(s): [id number] cc: KENIA HERANNDEZ Fluoro Time In Minutes: CHEST 2 VIEWS INDICATION / CLINICAL INFORMATION: sob,cough and rales. COMPARISON: 02/19/2020 FINDINGS: SUPPORT DEVICES: Right Port-A-Cath in satisfactory position HEART / MEDIASTINUM: No significant abnormality. LUNGS / PLEURA: Linear atelectasis extending from the right hilum. There may be some mild increased density and opacity in the right upper lung which is new since prior exam. No pneumothorax. Signer Name: Jacques Willard MD Signed: 09/20/2020 9:24 PM Workstation Name: [id number] Transcribed By: Dictated By: JONO WILLARD MD Electronically Authenticated By: JONO WILLARD MD Signed Date/Time: 09/20/202123 DD/ 23 TD/TT: Print Cancel - Medical Decision Making 25-year-old -Polish female presents to the emergency room complaining of fever headache and cough and chills for 2 days. Patient reports has been taken [id number] TheraFlu. She last took a dose was earlier this morning. Patient also reports of a headache. Patient denies any nausea no vomiting no loss of taste or smell no diarrhea or abdominal pain. She states that she has had Covid back in February and her symptoms are very similar. Patient does have a primary care provider but failed to follow-up with him. Critical care attestation.: If time is entered above; I have spent that time in minutes in the direct care of this critically ill patient, excluding procedure time. ED Disposition Clinical Impression: Pneumonia Disposition: DC-01 TO HOME OR SELFCARE Is pt being admited?: No Does the pt Need Aspirin: No Condition: Stable Instructions: Upper Respiratory Infection, Adult, [id number], Bacterial Pneumonia (ED) Additional Instructions: Your symptoms appear most consistent with a nonspecific viral syndrome. However, given this current pandemic, COVID-19 is in the differential of possibilities. Despite your previous negative COVID-19 test, I do recommend repeat outpatient Covid 19 testing. In the meantime, isolate/quarantine yourself and stay away from anyone who is elderly, immunocompromised or chronically ill. You can use ibuprofen every 6-8 hours and Tylenol every 4-8 hours, using the dosing on the back of the bottle, as needed for any fever or body aches. Return to the emergency department with any worsening of your symptoms, development of chest pain or shortness of breath, or with any acute distress. Prescriptions: Azithromycin [Zithromax Z-CHANDRA] 250 mg PO DAILY #6 tab Referrals: Your, primary care provider [Other] - 3-5 Days
[2020-09-20] MEDS ORDERED: IBUPROFEN 600 MG TAB PO ONE (19:43)
[2020-09-20 20:11] LABS: Basophils # (Auto) 0.1 K/mm3 (0.0-0.1); Basophils % (Auto) 0.6 % (0.0-1.8); Eosinophils # (Auto) 0.1 K/mm3 (0.0-0.4); Eosinophils % (Auto) 0.5 % (0.0-4.3); Lymphocytes # (Auto) 3.3 K/mm3 (1.2-5.4); Lymphocytes % (Auto) 28.7 % (13.4-35.0); Mean Corpuscular HGB Conc 29 % (30-34); Monocytes # (Auto) 1.8 K/mm3 (0.0-0.8); Platelet Count 307 K/mm3 (140-440); Red Blood Count 4.06 M/mm3 (3.65-5.03); Red Cell Distribution Width 19.1 % (13.2-15.2)
[2020-09-20 20:15] LABS: Hematocrit 26.1 % (30.3-42.9); Hemoglobin 7.6 gm/dl (10.1-14.3); Mean Corpuscular Volume 64 fl (79-97)
[2020-09-20 20:26] LABS: Alanine Aminotransferase 19 units/L (7-56); Albumin 4.2 g/dL (3.9-5); BUN/Creatinine Ratio 10; Blood Urea Nitrogen 7 mg/dL (7-17); Hemolysis Index 2
--- NOTE | 2020-09-20 21:29 | XRay Report ---
CHEST 2 VIEWS INDICATION / CLINICAL INFORMATION: sob,cough and rales. COMPARISON: 02/19/2020 FINDINGS: SUPPORT DEVICES: Right Port-A-Cath in satisfactory position HEART / MEDIASTINUM: No significant abnormality. LUNGS / PLEURA: Linear atelectasis extending from the right hilum. There may be some mild increased d ensity and opacity in the right upper lung which is new since prior exam. No pneumothorax. Signer Name: Jacques Mejia MD Signed: 09/20/2020 9:24 PM Workstation Name: [id number]
[2020-09-20 22:05] VITALS: BP 108/70
== END 2020-09-20 22:04 | disposition home or self-care (01) ==
LOC: ED 16:31
DX: J18.9 Pneumonia, unspecified organism (principal); R56.9 Unspecified convulsions; J45.909 Unspecified asthma, uncomplicated; Z98.890 Other specified postprocedural states; Z79.2 Long term (current) use of antibiotics; Z79.899 Other long term (current) drug therapy; Z88.8 Allergy status to other drugs, medicaments and biological substances; Z91.013 Allergy to seafood
CPT/HCPCS: 36415; 71046; 80053; 84702; 85025